=== PATIENT | female | born 1985 | race Caucasian/White ===

== ENCOUNTER 2022-05-20 16:26 | Emergency (ER) | payer OTHER, SELFPAY ==
[2022-05-20] MEDS ORDERED: Dexamethasone 4 MG TAB ONE (16:57)
== END 2022-05-20 17:58 | disposition home or self-care (01) ==
LOC: NAV ERS 16:26
DX: J06.9 Acute upper respiratory infection, unspecified (principal); B34.9 Viral infection, unspecified; K21.9 Gastro-esophageal reflux disease without esophagitis
CPT/HCPCS: 87081; 87430; 87804; 99283; J8540

== ENCOUNTER → 2022-05-24 | Emergency (ER) | payer OTHER ==
[~2022-05-24] MED LIST: Azithromycin 250 MG TAB ONE; guaiFENesin ER 600 MG TAB ONE
== END ==
LOC: NAV ERS 23:03
DX: J20.9 Acute bronchitis, unspecified (principal); B30.9 Viral conjunctivitis, unspecified; Z20.822 Contact with and (suspected) exposure to COVID-19; K21.9 Gastro-esophageal reflux disease without esophagitis; Z79.899 Other long term (current) drug therapy
CPT/HCPCS: 87804; 99283; U0003; U0005